=== PATIENT | female | born 1960 | race Caucasian/White ===

== ENCOUNTER 2016-10-30 20:24 | Emergency (ER) | payer OTHER ==
[~2016-10-30] VITALS: Ht 124.5 cm; Wt 97.5 kg
[~2016-10-30 20:24] MED LIST: ADVAIR 250-501 EACH INH; AMOXICILLIN500 M2 PO; AUGMENTIN 875 M1 TAB PO; IOPHEN-C NR LI473 ML PO; MONTELUKAST SOD10 M1 PO; NASONEX17 GM NASB; PREDNISONE50 M1 PO; PREDNISONE50 MG PO; PROMETHAZINE12.5 M2 PO; PROVENTIL0.09 MG/A1 PO; ROBITUSSIN W/CO10 ML PO; ZOFRAN4 M2 SL
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
[2016-10-30] MEDS ORDERED: PROAIR HFA8.5 GM INH (22:49)
[2016-10-30] MEDS ORDERED: FLUOXETINE HCL10 M2 PO (22:50)
[2016-10-30] MEDS ORDERED: FLUTICASONE PRO16 GM NASB (22:50)
[2016-10-30 23:14] VITALS: BP 130/74
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
[2016-10-30] MEDS ORDERED: CYCLOBENZAPRINE10 M1 PO (23:36)
[2016-10-30] MEDS ORDERED: VICODIN 5-3001 EACH PO (23:36)
== END 2016-10-30 23:56 ==
LOC: ERH 20:24
DX: S16.1XXA Strain of muscle, fascia and tendon at neck level, initial encounter (principal); V49.40XA Driver injured in collision with unspecified motor vehicles in traffic accident, initial encounter; Y92.410 Unspecified street and highway as the place of occurrence of the external cause
CPT/HCPCS: 72050; J3101

== ENCOUNTER 2016-11-01 09:52 | Emergency (ER) | payer OTHER ==
[~2016-11-01] VITALS: Ht 149.9 cm; Wt 97.5 kg
[~2016-11-01 09:52] MED LIST changes: +CYCLOBENZAPRINE10 M1 PO; +FLUOXETINE HCL10 M2 PO; +FLUTICASONE PRO16 GM NASB; +PROAIR HFA8.5 GM INH; +VICODIN 5-3001 EACH PO
[2016-11-01 09:59] VITALS: BP 137/87
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
[2016-11-01] MEDS ORDERED: VALIUM5 M2 PO (11:03)
== END 2016-11-01 11:16 ==
LOC: ERH 09:52
DX: S16.1XXD Strain of muscle, fascia and tendon at neck level, subsequent encounter (principal); V49.40XD Driver injured in collision with unspecified motor vehicles in traffic accident, subsequent encounter; Y92.488 Other paved roadways as the place of occurrence of the external cause